=== PATIENT | female | born 1985 | race Caucasian/White ===

== ENCOUNTER → 2017-06-09 10:10 | Outpatient (CLI) | payer OTHER, SELFPAY ==
[2017-06-09 10:36] LABS: Hematocrit 37.5 % (37-47); Mean Corp Hgb Conc 34.7 g/gl (32-36); Mean Corpuscular Hgb 32.3 pg (27.0-32.0); Mean Corpuscular Volume 93.3 fL (81-99); Mean Platelet Vol. 9.8 fl (6.2-12.0); Platelet Count 240 K/mm3 (150-450); RBC Distribution Width CV 12.3 % (11.6-14.6); RBC Distribution Width SD 40.9 fl (35.1-43.9); Red Blood Count 4.02 M/mm3 (4.2-5.4); Scan Indicated on CBC? Y/N NO; White Blood Count 7.1 K/mm3 (4.4-11.0)
[2017-06-09 10:44] LABS: Glucose Challenge Gest 1H 50g 65 mg/dL (70-140)
== END ==
PROVIDERS: Visit Provider Obstetrics & Gynecology
DX: Z34.83 Encounter for supervision of other normal pregnancy, third trimester (principal)
CPT/HCPCS: 36415; 82950; 85027

== ENCOUNTER → 2017-08-03 11:30 | Outpatient (CLI) | payer OTHER, SELFPAY ==
--- NOTE | 2017-08-03 11:30 | DT_ITS ---
This patient was seen during an EMR downtime August 02, 2017 - August 09, 2017. This patient may have a combination of paper and electronic documentation or all paper documentation. All documentation is viewable within the e-chart portion of [employer] for each patient visit.
[2017-08-06 13:31] LABS: Group B Strep DNA By PCR POSITIVE (Negative); Probe Check PASS
== END ==
PROVIDERS: Visit Provider Obstetrics & Gynecology
DX: Z36.85 Encounter for antenatal screening for Streptococcus B (principal)
CPT/HCPCS: 87653

== ENCOUNTER 2017-08-31 22:40 | Inpatient (IN) | payer OTHER, SELFPAY ==
[2017-08-31 21:27] VITALS: BMI 24.5
[2017-08-31] MEDS: Lactated Ringers 1,000 ML 50 ML IV (22:55)
[2017-08-31 23:12] LABS: Hematocrit 42.7 % (37-47); Hemoglobin 15.4 g/dl (12.0-15.0); Mean Corp Hgb Conc 36.1 g/gl (32-36); Mean Corpuscular Hgb 32.6 pg (27.0-32.0); Mean Corpuscular Volume 90.3 fL (81-99); Mean Platelet Vol. 10.3 fl (6.2-12.0); Platelet Count 242 K/mm3 (150-450); RBC Distribution Width CV 12.6 % (11.6-14.6); RBC Distribution Width SD 41.1 fl (35.1-43.9); Red Blood Count 4.73 M/mm3 (4.2-5.4); White Blood Count 13.7 K/mm3 (4.4-11.0)
[2017-08-31 23:13] LABS: Scan Indicated on CBC? Y/N NO
[2017-08-31] MEDS: Oxytocin 30 units/NS 500 ml 30 UNITS/500 ML IV.SOLN 334 UNITS IV (23:56)
--- NOTE | 2017-09-01 00:18 | PCM.DCVAG ---
Discharge Diet: No Restrictions May resume sexual activity in: 4-6 weeks Additional Activity Instructions:: Nothing in the vagina for 4-6 weeks. You may return to work/school in 6 weeks. Additional Instructions: If you experience any of the following, contact your healthcare provider. Bleeding that soaks a pad every hour for 2 hours Fever 100.4 or higher Unrelieved abdominal pain Problems urinating (including inability to urinate or burning while urinating). Visual changes Severe headache Flu-like symptoms Pain or redness in one of both of your breasts Pain, warmth, tenderness or swelling in your legs, especially the calf area Frequent nausea and vomiting Symptoms of depression or anxiety If you experience any of the following, call 911 or go to the nearest Emergency Room. Chest pain Problems breathing Seizure activity Partial or complete paralysis of a body part, slurred speech, weakness or drooping of the face, or a sudden inability to walk or hold your balance Allergies/Adverse Reactions: Allergies promethazine [From Phenergan] Allergy (Verified 08/31/17 21:28) Other Panic attacks Medications to take at Discharge Loratadine [Claritin] 10 mg PO DAILY 06/26/15 Vits [Prenatabs FA] 1 tablet PO DAILY 06/26/15 Lactobacillus Acidophilus/Fos [Acidophilus Probiotic Tablet] 1 each PO DAILY 08/31/17 Magnesium Oxide [Magnesium] 375 mg PO DAILY 08/31/17 Please Follow Up With: Ilana Jackson MD - [phone] When: Call to make an appointment with your doctor in 6 weeks. Primary Care Physician: Damián Abdul MD [Primary Care Provider] - Test Results:
--- NOTE | 2017-09-01 00:19 | DCINST_ITS ---
Discharge Diet: No Restrictions May resume sexual activity in: 4-6 weeks Additional Activity Instructions:: Nothing in the vagina for 4-6 weeks. You may return to work/school in 6 weeks. Additional Instructions: If you experience any of the following, contact your healthcare provider. * Bleeding that soaks a pad every hour for 2 hours * Fever 100.4 or higher * Unrelieved abdominal pain * Problems urinating (including inability to urinate or burning while urinating) . * Visual changes * Severe headache * Flu-like symptoms * Pain or redness in one of both of your breasts * Pain, warmth, tenderness or swelling in your legs, especially the calf area * Frequent nausea and vomiting * Symptoms of depression or anxiety If you experience any of the following, call 911 or go to the nearest Emergency Room. * Chest pain * Problems breathing * Seizure activity * Partial or complete paralysis of a body part, slurred speech, weakness or drooping of the face, or a sudden inability to walk or hold your balance Allergies/Adverse Reactions: Allergies promethazine [From Phenergan] Allergy (Verified 08/31/17 21:28) Other Panic attacks Medications to take at Discharge Loratadine [Claritin] 10 mg PO DAILY 06/26/15 Vits [Prenatabs FA] 1 tablet PO DAILY 06/26/15 Lactobacillus Acidophilus/Fos [Acidophilus Probiotic Tablet] 1 each PO DAILY 05/16 Magnesium Oxide [Magnesium] 375 mg PO DAILY 08/31/17 Please Follow Up With: Ilana Jackson MD - [phone] When: Call to make an appointment with your doctor in 6 weeks. Primary Care Physician: Damián Abdul MD [Primary Care Provider] - Test Results:
--- NOTE | 2017-09-01 00:19 | PCM.OB.VAG ---
Vaginal Delivery Maternal Presentation: Active Labor Amniotic Membrane Rupture Type: Artificial Amniotic Fluid Description: Clear Final ERWIN: 08/28/17 Gestational age: 40 Weeks and 3 Days Date of Procedure: 08/31/17 Pre-Operative Diagnosis: 40 3/7 wk labor Post-Operative Diagnosis: same Surgery/ Procedure Performed: Spontaneous Vaginal Delivery Type of Anesthesia: None Description of Procedure: of a zimmer viable female over intact perineum. Head delivered DESIRE. No nuchal cord. shoulders delivered rapidly after head. Baby to maternal abdomen with spont, vigorous cry. Delayed cord clamping , then clamped x two and cut. routine blood for typing collected PP exam: no lacerations Placenta delivered intact, normal appearing , by spont expulsion 3V cord with trailing membranes EBL 350cc raytec counts correct x two. Pt and infant tolerated delivery well. To recovery, stable condition. Presentation: Vertex, DESIRE Placental Delivery Description: Spontaneous, Expressed Placenta Disposition: [facility] Cord Vessel Description: 3 Vessels Cord Entanglement: None Estimated Blood Loss: 350 A gender: Female (1 minute): 9 (5 minute): 9 Episiotomy Description: None Laceration: None Medications given after delivery: IV Pitocin Complications: None
[2017-09-01] MEDS: Oxytocin 30 units/NS 500 ml 30 UNITS/500 ML IV.SOLN 167 UNITS IV (00:26)
[2017-09-01] MEDS: Acetaminophen 500 MG Tablet 1000 MG PO ×2 (01:24→12:11)
[2017-09-01 02:00] VITALS: BP 116/58; PULSE 70; RESP 18; TEMP 37.2
[2017-09-01 03:50] VITALS: BP 100/48; PULSE 61; RESP 18; TEMP 36.8; O2SAT 96
--- NOTE | 2017-09-01 07:29 | PCM.PN.OB ---
Subjective: PPD# 0-1 delivered just prior to MN last night Doing well. Nursing, and having some pain and cramping. Took Tylenol for this. - Physical Exam General: Alert, Oriented x3, Cooperative, No apparent distress HEENT: Atraumatic Neck: Supple Abdomen: Soft - Fundus firm at umbilicus, NT. Neurological: Cranial nerves II-XII grossly intact Psych/Mental Status: Normal Affect Vital Signs Temp Pulse Resp BP Pulse Ox 98.3 F 61 18 100/48 L 96 09/01/17 03:50 09/01/17 03:50 09/01/17 03:50 09/01/17 03:50 09/01/17 03:50 Oxygen Delivery Method Room Air Weight: 82.2 kg Body Mass Index (BMI) 24.5 Intake and Output for Last 24 Hours 08/30/17 08/31/17 09/01/17 23:59 23:59 23:59 Intake Total 634 / 634 Output Total 800 / 800 Balance -166 / -166 Laboratory Tests Past 24 Hrs 08/31/17 08/31/17 08/31/17 22:55 22:55 22:55 WBC 13.7 H RBC 4.73 Hgb 15.4 H Hct 42.7 MCV 90.3 MCH 32.6 H MCHC 36.1 H RDW 12.6 RDW Differential 41.1 Plt Count 242 MPV 10.3 Blood Type Cancelled B NEGATIVE A1 Antigen Typing Cancelled Rho(D) Type Cancelled Antibody Screen Cancelled NEGATIVE Medical Necessity - Tobacco Use Smoking Status: Never smoker Assessment/Plan PPD#0-1 Stable . Continue care.
[2017-09-01] MEDS: Ibuprofen 600 MG Tablet PO ×2 (07:36→16:02)
[2017-09-01 08:00] VITALS: BP 110/70; PULSE 74; RESP 17; TEMP 36.7; O2SAT 99
[2017-09-01] MEDS: Magnesium Oxide 400 MG Tablet PO (11:46)
[2017-09-01] MEDS: Loratadine 10 MG Tablet PO (11:47)
[2017-09-01] MEDS: Prenatal Vits Tablet 1 TABLET PO (11:47)
--- NOTE | 2017-09-01 12:29 | NURSING ---
0424 While rounding, Mom states that baby is latching so well. Mom has a home pump and not sure she will do another. Mom independently has been latching but encouraged to call if and when we can help with feedings. Kyle GALLEGO
[2017-09-01 12:58] VITALS: BP 117/71; PULSE 70; RESP 17; TEMP 36.7; O2SAT 99
[2017-09-01 16:00] VITALS: BP 113/61; PULSE 78; RESP 17; TEMP 36.6; O2SAT 99
[2017-09-01 19:40] VITALS: BP 111/62; PULSE 67; RESP 18; TEMP 36.5; O2SAT 97
[2017-09-02 02:00] VITALS: BP 100/51; PULSE 60; RESP 18; TEMP 36.1; O2SAT 97
[2017-09-02] MEDS: Ibuprofen 600 MG Tablet PO (04:38)
--- NOTE | 2017-09-02 07:16 | PCM.PN.OB ---
Subjective: PPD#1-2 delivered just prior to MN (08/31/17 at 2353) tired today. 2 1/2 hr sleep as caring for baby overnight. Baby nursing, but had to try to wake to nurse in night time. Likely to go home very late this evening, if baby is released. GBS positive and inadequate interval from ABX given to delivery. Minimal pain, no other concerns voiced. Objective: sitting up in bed, holding sleeping - Physical Exam General: Alert, Oriented x3, Cooperative, No apparent distress HEENT: Atraumatic Neck: Supple Neurological: Cranial nerves II-XII grossly intact Psych/Mental Status: Normal Affect Vital Signs Temp Pulse Resp BP Pulse Ox 97.0 F L 60 18 100/51 L 97 09/02/17 02:00 09/02/17 02:00 09/02/17 02:00 09/02/17 02:00 09/02/17 02:00 Oxygen Delivery Method Room Air Weight: 82.2 kg Body Mass Index (BMI) 24.5 Intake and Output for Last 24 Hours 08/31/17 09/01/17 09/02/17 23:59 23:59 23:59 Intake Total 634 / 634 Output Total 800 / 800 Balance -166 / -166 Medical Necessity - Tobacco Use Smoking Status: Never smoker Assessment/Plan PPD# 1-2 , very late (just prior to MN on 08/31/17) Stable . Continue care. Likely dischg home later in evening. Advised of option to sleep here but on hotel status. Declines as prefers own bed, at home. RTO in 6 wk for pp check.
[2017-09-02 08:00] VITALS: BP 111/37; PULSE 64; RESP 16; TEMP 36.4; O2SAT 98
[2017-09-02] MEDS: Prenatal Vits Tablet 1 TABLET PO (09:34)
[2017-09-02] MEDS: Magnesium Oxide 400 MG Tablet PO (09:35)
[2017-09-02] MEDS: Loratadine 10 MG Tablet PO (09:35)
[2017-09-02 14:15] VITALS: BP 111/47; PULSE 62; TEMP 36.8; O2SAT 98
== END 2017-09-02 19:20 | disposition home or self-care (01) | DRG 775 ==
LOC: WPOUT 22:43
PROVIDERS: Admitting Provider Obstetrics & Gynecology; Family Provider Family Medicine; PCP Family Medicine; Visit Provider Obstetrics & Gynecology
DX: O99.824 Streptococcus B carrier state complicating childbirth (principal); O99.52 Diseases of the respiratory system complicating childbirth; J45.909 Unspecified asthma, uncomplicated; O99.72 Diseases of the skin and subcutaneous tissue complicating childbirth; L30.9 Dermatitis, unspecified; Z3A.40 40 weeks gestation of pregnancy; Z37.0 Single live birth
CPT/HCPCS: 59025; 59050; 85027; 86850; 86900; 86901; 99218; J7120; G0378

== ENCOUNTER → 2019-07-14 | Outpatient (CLI) | payer OTHER, SELFPAY ==
[2019-07-19 05:05] LABS: HPV APTIMA, High Risk Negative (Negative)
== END | disposition home or self-care (01) ==
LOC: LABSPEC 13:56
PROVIDERS: PCP Family Medicine; Referring Provider Obstetrics & Gynecology; Visit Provider Obstetrics & Gynecology
DX: Z12.4 Encounter for screening for malignant neoplasm of cervix (principal)
CPT/HCPCS: 87624; 88175; G0145

== ENCOUNTER 2021-01-13 20:20 | Inpatient (IN) | payer OTHER, SELFPAY ==
[2021-01-13] VITALS (7 sets, daily range): BP systolic 108–131; BP diastolic 52–65; PULSE 60–73; TEMP 36.4–36.8; O2SAT 100; BMI 24.9
[2021-01-13] MEDS: Lactated Ringers 1,000 ML 50 ML IV (20:49)
[2021-01-13] MEDS: 0.9% Saline Lock 10 ML Syringe IV ×2 (20:54→23:25)
[2021-01-13 20:58] LABS: Absolute Lymphocyte Count 1.01 X10^3/uL (0.83-4.51); Absolute Neutrophil Count 8.9 X10^3/uL (2.0-7.7); Basophil# 0.03 X10^3/uL; Basophil% 0.3 % (0-1); Eosinophil# 0.11 X10^3/uL; Hematocrit 37.1 % (37-47); Hemoglobin 12.9 g/dL (12.0-15.0); Lymphocyte # 1.01 X10^3/ul (0.83-4.51); Lymphocyte % 9.6 % (19-41); Mean Corp Hgb Conc 34.8 g/dL (32-36); Mean Corpuscular Hgb 32.4 pg (27.0-32.0); Mean Corpuscular Volume 93.2 fL (81-99); Monocyte# 0.44 X10^3/uL; Monocyte% 4.2 % (0-10); NRBC Flagged by Analyzer 0 % (0-5); Neutrophil # 8.91 X10^3/uL (2.7-7.7); Neutrophil % 84.4 % (47-70); Platelet Count 226 K/mm3 (150-450); RBC Distribution Width CV 12.3 % (11.6-14.6); RBC Distribution Width SD 42.4 fl (35.1-43.9); Red Blood Count 3.98 M/mm3 (4.2-5.4); White Blood Count 10.6 K/mm3 (4.4-11.0)
[2021-01-13] MEDS: Oxytocin 30 units/NS 500 ml 30 UNITS/500 ML IV.SOLN 334 UNITS IV (23:13)
[2021-01-13] MEDS: Methylergonovine 0.2 MG/ML Ampul IM (23:20)
--- NOTE | 2021-01-13 23:23 | HP.PCM.OB_ITS ---
HPI - General General Date of Admission: 01/13/21 HPI Narrative RUDY SANFORD, is a 35 F who presents at 39w0d in active labor. uncomplicated. Maternal Data Information ERWIN Calculator Estimated Delivery Date Method Current WG Current Estimate 01/20/21 Manual 39w 0d PFSH PFSH Medical History (Updated 01/13/21 @ 23:25 by Cheryl Pabon CNM) Asthma Home Medications loratadine [Claritin] 10 mg PO DAILY 06/26/15 [History Last Taken 08/30/17 18:00 10 mg] vit,[id number] [Prenatabs FA] 1 tab PO DAILY 06/26/15 [History Last Taken 08/31/17 09:00 1 tab] Lactobac acidoph-fructooligos 1 ea PO DAILY 08/31/17 [History Last Taken 08/31/17 09:00 1 tab] magnesium oxide 375 mg PO DAILY 08/31/17 [History Last Taken 08/30/17 21:30 375 mg] ascorbic acid (vitamin C) [Vitamin C] 1 g PO Q6H 01/13/21 [History Last Taken Unknown] cetirizine [Zyrtec] 10 mg PO DAILY 01/13/21 [History Last Taken Unknown] omega-3 fatty acids [Fish Oil] 1,000 mg PO DAILY 01/13/21 [History Last Taken Unknown] Allergy/AdvReac Type Severity Reaction Status Date / Time chocolate flavor Allergy Rash Verified 01/13/21 20:08 promethazine [From Phenergan] Allergy Other Verified 01/13/21 20:08 tomato Allergy Rash Verified 01/13/21 20:08 lactase [From Dairy Aid] AdvReac Anaphylaxis Verified 01/13/21 20:08 Surgical History (Updated 01/13/21 @ 20:29 by Yesika Collins) H/O wisdom tooth extraction Social History Smoking Status: Never smoker History Elective abortions Hx Para 2 Spontaneous abortions Hx # Term Pregnancies Ectopic pregnancies Hx # Pregnancies Multiple births # of living children NST FHR Rate Baby A Baseline: 135 Variability:: Moderate Accelerations:: 15 x 15 Decelerations:: None FHR Category:: Category I Uterine Activity:: Every 7 minutes, moderate ROS Constitutional Constitutional: Reports systems reviewed and no addt'l complaints, except as documented; Denies headache(s) Eyes Eyes: Denies acute decrease in peripheral vision, blurry vision or change in vision ENT HEENT: Reports systems reviewed and no addt'l complaints, except as documented Cardiovascular Cardiovascular: Denies chest pain or dizziness Respiratory/Chest Respiratory/Chest: Denies cough, dyspnea, dyspnea on exertion, shortness of breath at rest or shortness of breath with exertion Gastrointestinal Gastrointestinal: Denies abdominal pain, diarrhea, nausea or vomiting Genitourinary Genitourinary: Denies abdominal discomfort or movement Musculoskeletal Musculoskeletal: Denies limited range of motion Integumentary Integumentary: Reports systems reviewed and no addt'l complaints, except as documented Neurologic Neurologic: Reports systems reviewed and no addt'l complaints, except as docu mented Psychiatric Psychiatric: Reports systems reviewed and no addt'l complaints, except as documented Endocrine Endocrinology: Reports systems reviewed and no addt'l complaints, except as documented Hematologic/Lymphatic Hematologic/Lymphatic: Reports systems reviewed and no addt'l complaints, except as documented Allergic/Immunologic Allergic/Immunologic: Reports systems reviewed and no addt'l complaints, except as documented Vital Signs Vital Signs Vital Signs: 01/13/21 20:01 01/13/21 20:03 01/13/21 21:03 Temperature 97.6 F L 98.2 F Temperature Source Temporal Pulse Rate 70 71 73 Blood Pressure 124/62 H 118/59 L BP Systolic 124 118 BP Diastolic 62 59 Pulse Ox 100 01/13/21 22:11 Temperature 97.7 F L Temperature Source Pulse Rate 73 Blood Pressure 108/52 L BP Systolic 108 BP Diastolic 52 Pulse Ox Weight Weight: 184 lb Body Mass Index (BMI) 24.9 Physical Exam Const alert and oriented x3 General Appearance: cooperative Orientation / Consciousness: awake, oriented to person, oriented to place and oriented to time Exam Limitations: no limitations HEENT normocephalic Head and Scalp: normal to inspection, normocephalic and atraumatic Face and Sinus: normal facial exam Eyes General Eye: normal appearance of both eyes Neck full ROM Chest Chest: symmetrical chest wall rise Resp normal respiratory effort and normal air movement Auscultation: clear to auscultation bilaterally Cardio regular rate, regular rhythm, S1 normal heart sound, S2 normal heart sound, no murmurs, no rub, no gallops and no clicks GI normal to inspection, nondistended, normoactive bowel sounds and non-tender appearance of the vagina normal Narrative: AROM for small amount of clear fluid Bladder / Kidney Exam: no CVA tenderness Manual OB Exam: estimated gestational size appropriate, presentation cephalic, dilated 9cm, effaced 90% and station 0 Back/Spine normal ROM Extremity normal to inspection and full ROM Skin no rashes or lesions noted Neuro oriented x3, CN's II-XII intact bilaterally and moves all extremities Sensorium / Orientation: awake, alert and oriented to person Motor Exam: clonus absent Deep Tendon Reflexes: Rt Patellar (L4): 2+ and Lt Patellar (L4): 2+ Labs Labs Labs: Blood Type B NEGATIVE Antibody Screen NEGATIVE Hct 37.1 % (37-47) Hgb 12.9 g/dL (12.0-15.0) Rubella IgG Antibody 151.7 IU/mL Hep Bs Antigen Negative (Negative) C.trachomatis DNA (PCR) Negative (Negative) Glucose 1 Hr 50 gm 65 mg/dL (70-140) L Group B Strep DNA POSITIVE (Negative) H Rhogam given: No HIV negative Assessment & Plan (1) Active labor at term: PLAN: 1) Admit to labor and delivery 2) Routine labs 3) GBS positive-Prophylaxis per protocol 4) COVID vaccinated 5) IA after reactive NST 6) Planning unmedicated 7) collaborative physician and notified of patient status
--- NOTE | 2021-01-13 23:27 | EX.PCM.OBRPT ---
Assessment & Plan (1) Vaginal delivery: (2) Uterine atony: Maternal Data Information ERWIN Calculator Estimated Delivery Date Method Current WG Current Estimate 01/20/21 Manual 39w 0d Vaginal Delivery Maternal Presentation Maternal Presentation: Active Labor Operative Information Date of Procedure: 01/13/21 Pre-Operative Diagnosis: Active Labor Post-Operative Diagnosis: Type of Anesthesia: None Estimated Blood Loss: 350 ml Time of Delivery: 23:11 Findings Description of Procedure: Progressed to complete with urge to push. of viable female over intact perineum. head delivered with body immediately forth coming. Infant placed on maternal abdomen, strong cry, mouth and nares suctioned for secretions. APGARS 9,9. Pitocin started for active 3rd stage management. Cord clamped and cut after pulsations ceased by FOB. Placenta delivered via richelle intact, 3 vessel cord. Perineum inspected and intact. Fundus boggy and increased bleeding, Methergine IM given. Hemostasis achieved and fundus firm. Vaginal sweep completed, sponge and instrument count correct. Mom and baby stable, planning to breastfeed. Family bonding well. notified of delivery. Presentation: Vertex and DESIER Amniotic Membrane Rupture Type: Artificial Amniotic Fluid Description: Clear Placental Delivery Description: Expressed Placenta Disposition: [facility] Cord Vessel Description: 3 Vessels Cord Entanglement: None Infant A Gender: Female (1 minute): 9 (5 minute): 9 Delayed Cord Clamping: Yes Post Vaginal Delivery Medications Given After Delivery: IV Pitocin Episiotomy Description: None Laceration: None Complication Complications: None
[2021-01-14] VITALS (12 sets, daily range): BP systolic 103–131; BP diastolic 36–75; PULSE 61–77; RESP 16; TEMP 36.6–37.3; O2SAT 97–98
[2021-01-14] MEDS: Ibuprofen 600 MG Tablet PO ×4 (00:20→18:31)
[2021-01-14] MEDS: Acetaminophen 500 MG Tablet 1000 MG PO ×4 (01:13→22:37)
--- NOTE | 2021-01-14 08:56 | PN.OBGYN_ITS ---
Subjective Subjective Pain well controlled. Average lochia. Objective Data Objective Data Vital Signs: Vital Signs Temp Pulse Resp BP Pulse Ox 97.8 F 70 16 114/69 97 01/14/21 08:01 01/14/21 08:01 01/14/21 08:01 01/14/21 08:01 01/14/21 08:01 Oxygen Delivery Method Room Air Weight: 83.461 kg Body Mass Index (BMI) 24.9 Intake & Output: Intake and Output for Last 24 Hours 01/12/21 01/13/21 01/14/21 23:59 23:59 23:59 Intake Total 402 / 402 297.82 / 297.82 Output Total 750 / 750 Balance 402 / 402 -452.18 / -452.18 Lab / Micro Data Result Diagrams: 01/13/21 20:40 Labs: Laboratory Results - last 24 hr 01/13/21 20:40: WBC 10.6, RBC 3.98 L, Hgb 12.9, Hct 37.1, MCV 93.2, MCH 32.4 H, MCHC 34.8, RDW Std Deviation 42.4, RDW Coeff of Brenna 12.3, Plt Count 226, MPV 10.0, Immature Gran % (Auto) 0.500, Neut % (Auto) 84.4 H, Lymph % (Auto) 9.6 L, [place] % (Auto) 4.2, Eos % (Auto) 1.0, Baso % (Auto) 0.3, Absolute Neuts (auto) 8.9 H, Absolute Lymphs (auto) 1.01, Nucleated RBC % 0 01/13/21 20:40: Blood Type B NEGATIVE, Antibody Screen NEGATIVE Physical Exam Const alert and no apparent distress Narrative: Fundus firm, below umbilicus. Assessment & Plan (1) Vaginal delivery: PLAN: day #1 status post vaginal delivery. Patient and are doing well. Working on breast-feeding. Likely discharge home tomorrow.
[2021-01-14 16:49] LABS: Hematocrit 35.1 % (37-47); Hemoglobin 12.3 g/dL (12.0-15.0); Mean Corpuscular Hgb 32.6 pg (27.0-32.0); Mean Corpuscular Volume 93.1 fL (81-99); Mean Platelet Vol. 9.9 fl (6.2-12.0); Platelet Count 236 K/mm3 (150-450); RBC Distribution Width CV 12.3 % (11.6-14.6); RBC Distribution Width SD 42.1 fl (35.1-43.9); Red Blood Count 3.77 M/mm3 (4.2-5.4); White Blood Count 13.4 K/mm3 (4.4-11.0)
[2021-01-15] VITALS: BP 105/47; PULSE 64; RESP 16; TEMP 36.5; O2SAT 96
[2021-01-15] MEDS: Ibuprofen 600 MG Tablet PO ×2 (00:56→08:09)
[2021-01-15 04:10] VITALS: BP 106/58; PULSE 59; RESP 16; TEMP 36.3; O2SAT 98
[2021-01-15] MEDS: Acetaminophen 500 MG Tablet 1000 MG PO ×2 (04:52→11:04)
--- NOTE | 2021-01-15 08:19 | PCM.DC ---
Discharge Instructions Diet Discharge Diet: No restrictions Activity May resume sexual activity in: 6-8 weeks Weight Bearing Status: Weight bearing as tolerated Dressing / Incision Call your doctor if you observe: Fever of 101 or Higher, Inability to urinate, Using more than 1 pad per hour, Shortness of breath, Chest pain, Calf discomfort and Uncontrolled pain Follow Up Care Please Follow Up With: Maddy Conklin CNM When: 2 weeks virtual visit/ 6 weeks in office Test Results: Test results from this visit will be discussed in further detail at your follow-up appointment, if applicable. Discharge Plan Admission Admit Date/Time: 01/13/21 20:20 Primary Reason for Your Visit: Labor and delivery Attending Provider: Cheryl Pabon Primary Care Provider: Damián Abdul Discharge Orders/Prescriptions Prescriptions: No Action loratadine [Allergy Relief (loratadine)] 10 MG tablet 10 mg PO DAILY RF: 0 Prenatabs FA 1 TABLET tablet 1 tab PO DAILY RF: 0 Lactobac acidoph-fructooligos 1 EACH tablet 1 ea PO DAILY RF: 0 magnesium oxide 400 MG tablet 375 mg PO DAILY RF: 0 ascorbic acid (vitamin C) [Vitamin C] 1,000 mg Tablet 1 g PO Q6H RF: 0 cetirizine [Zyrtec] 10 mg Tablet 10 mg PO DAILY RF: 0 Fish Oil Capsule 1,000 mg PO DAILY RF: 0 Referrals / Follow Up: Damián Abdul MD [Primary Care Provider] - Disposition Disposition (needs filled in before D/C Order can be placed): Home, Self Care
--- NOTE | 2021-01-15 08:19 | PCM.PN.OB ---
Subjective Subjective Patient sitting in chair at bedside. without difficulty. Ambulating and voiding. Desires discharge home today. Objective Data Objective Data Vital Signs: Vital Signs Temp Pulse Resp BP Pulse Ox 97.4 F L 59 L 16 106/58 L 98 01/15/21 04:10 01/15/21 04:10 01/15/21 04:10 01/15/21 04:10 01/15/21 04:10 Oxygen Delivery Method Room Air Weight: 184 lb Body Mass Index (BMI) 24.9 Intake & Output: Intake and Output for Last 24 Hours 01/13/21 01/14/21 01/15/21 23:59 23:59 23:59 Intake Total 402 / 402 297.82 / 297.82 Output Total 750 / 750 Balance 402 / 402 -452.18 / -452.18 Lab / Micro Data Result Diagrams: 01/14/21 16:35 Labs: Laboratory Results - last 24 hr 01/14/21 16:35: WBC 13.4 H, RBC 3.77 L, Hgb 12.3, Hct 35.1 L, MCV 93.1, MCH 32.6 H, MCHC 35.0, RDW Std Deviation 42.1, RDW Coeff of Brenna 12.3, Plt Count 236, MPV 9.9 ROS Eyes Eyes: Denies blurry vision, change in vision or spots in vision ENT HEENT: Denies dizziness or headache(s) Cardiovascular Cardiovascular: Denies abdominal pain, chest pain or dyspnea Respiratory/Chest Respiratory/Chest: Denies cough, dyspnea, shortness of breath at rest or shortness of breath with exertion Gastrointestinal Gastrointestinal: Denies abdominal pain, diarrhea or vomiting Genitourinary Genitourinary: Denies change in urinary stream, difficulty urinating or dysuria Musculoskeletal Musculoskeletal: Reports none Integumentary Integumentary: Denies rash Neurologic Neurologic: Denies dizziness, headache(s), memory loss or weakness Physical Exam Const alert and no apparent distress General Appearance: cooperative and comfortable Exam Limitations: no limitations HEENT normocephalic Eyes General Eye: normal appearance of both eyes Neck full ROM General: normal visual inspection Chest Chest: symmetrical chest wall rise Resp normal respiratory effort and normal air movement Effort and Inspection: symmetric chest movement Auscultation: clear to auscultation bilaterally Cardio regular rate and regular rhythm GI normal to inspection, nondistended, normoactive bowel sounds Back/Spine normal ROM Extremity full ROM and no calf tenderness General Extremity: normal exam except as noted Skin no rashes or lesions noted Neuro CN's II-XII intact bilaterally Psych mental status grossly normal Assessment & Plan (1) Vaginal delivery: PLAN: PPD 2 - intact Routine care support D/C home with follow up in office
[2021-01-15 08:27] VITALS: BP 113/69; PULSE 67; RESP 16; TEMP 36.6; O2SAT 100
== END 2021-01-15 11:55 | disposition home or self-care (01) | DRG 807 ==
LOC: WPOUT 20:22 → WP 20:22
PROVIDERS: Admitting Provider Advanced Practice Midwife; PCP Family Medicine; Visit Provider Advanced Practice Midwife
DX: O72.1 Other immediate postpartum hemorrhage (principal); Z37.0 Single live birth; O99.824 Streptococcus B carrier state complicating childbirth; Z3A.39 39 weeks gestation of pregnancy
CPT/HCPCS: 59025; 59050; 85025; 85027; 86850; 86900; 86901; 99218; J7120; A4216; G0378

== ENCOUNTER 2024-01-05 14:45 | Inpatient (IN) | payer OTHER, SELFPAY ==
[2024-01-05] VITALS (18 sets, daily range): BP systolic 107–124; BP diastolic 56–97; PULSE 56–72; RESP 16; TEMP 36.6–36.8; O2SAT 100; BMI 24.9
[2024-01-05] MEDS: 0.9% Saline Lock 10 ML Syringe IV (16:20)
[2024-01-05 16:54] LABS: Absolute Lymphocyte Count 0.88 X10^3/uL (0.83-4.51); Absolute Neutrophil Count 12.4 X10^3/uL (2.0-7.7); Basophil# 0.03 X10^3/uL; Basophil% 0.2 % (0-1); Eosinophil# 0.09 X10^3/uL; Eosinophils% 0.6 % (0-5); Hematocrit 37.5 % (37-47); Lymphocyte # 0.88 X10^3/ul (0.83-4.51); Lymphocyte % 6.3 % (19-41); Mean Corp Hgb Conc 34.7 g/dL (32-36); Mean Corpuscular Hgb 32.2 pg (27.0-32.0); Mean Corpuscular Volume 92.8 fL (81-99); Mean Platelet Vol. 10.4 fl (6.2-12.0); Monocyte# 0.58 X10^3/uL; Monocyte% 4.1 % (0-10); NRBC Flagged by Analyzer 0 % (0-5); Neutrophil # 12.35 X10^3/uL (2.7-7.7); Neutrophil % 88.3 % (47-70); Platelet Count 214 K/mm3 (150-450); RBC Distribution Width CV 12.3 % (11.6-14.6); RBC Distribution Width SD 42.2 fl (35.1-43.9); Red Blood Count 4.04 M/mm3 (4.2-5.4)
[2024-01-05 17:46] LABS: Syphilis Antibodies Non-reactive
[2024-01-05] MEDS: Oxytocin 10 UNITS/ML Vial IM (18:07)
[2024-01-05] MEDS: Acetaminophen 500 MG Tablet 1000 MG PO (19:59)
[2024-01-05] MEDS: Ibuprofen 600 MG Tablet PO (23:25)
[2024-01-06] MEDS: Acetaminophen 500 MG Tablet 1000 MG PO ×2 (03:07→19:53)
[2024-01-06 03:10] VITALS: BP 115/70; PULSE 69; RESP 16; TEMP 36.3
[2024-01-06] MEDS: DiphenhydrAMINE 25 MG Capsule PO ×3 (05:32→21:47)
[2024-01-06] MEDS: Ibuprofen 600 MG Tablet PO ×2 (07:14→12:34)
[2024-01-06 08:00] VITALS: BP 126/74; PULSE 56; RESP 16; TEMP 36.2
[2024-01-06] MEDS: Sodium Chloride 0.65% 1 SPRAY SPRAY.BTL NASAL (09:30)
[2024-01-06] MEDS: Acetaminophen/Butalbital/Caffe 1 Tablet 2 TABLET PO (10:22)
[2024-01-06 11:57] VITALS: BP 115/76; PULSE 58; RESP 16; TEMP 36.3; O2SAT 100
[2024-01-06] MEDS: oxyCODONE 5 MG Tablet 10 MG PO (13:30)
[2024-01-06] MEDS: Metoclopramide 10 MG Tablet PO (15:12)
[2024-01-06] MEDS: Ketorolac 30 MG/ML Syringe IM (15:12)
[2024-01-06 16:00] VITALS: BP 112/65; PULSE 59; RESP 16; TEMP 36.3; O2SAT 97
[2024-01-06 19:55] VITALS: PULSE 57; RESP 16; TEMP 36.3; O2SAT 99
[2024-01-06] MEDS: Ketorolac 10 MG Tablet PO (21:47)
[2024-01-06] MEDS: Metoclopramide 5 MG TABLET PO (21:48)
[2024-01-07] MEDS: Acetaminophen 500 MG Tablet 1000 MG PO ×2 (01:54→08:37)
[2024-01-07 01:55] VITALS: BP 121/80; PULSE 61; RESP 16; TEMP 36.4; O2SAT 97
[2024-01-07] MEDS: Metoclopramide 5 MG TABLET PO ×2 (03:57→10:12)
[2024-01-07] MEDS: Ketorolac 10 MG Tablet PO ×2 (03:58→10:12)
[2024-01-07 08:40] VITALS: BP 122/79; PULSE 59; RESP 16; TEMP 36.7; O2SAT 100
[2024-01-07] MEDS: DiphenhydrAMINE 25 MG Capsule PO (10:12)
[2024-01-07 10:56] VITALS: BP 122/79; PULSE 59; RESP 16; TEMP 36.7; O2SAT 100
== END 2024-01-07 11:40 | disposition home or self-care (01) | DRG 807 ==
PROVIDERS: Admitting Provider Obstetrics & Gynecology; PCP Family Medicine; Referring Provider Obstetrics & Gynecology; Visit Provider Obstetrics & Gynecology
DX: O99.52 Diseases of the respiratory system complicating childbirth (principal); Z37.0 Single live birth; G43.909 Migraine, unspecified, not intractable, without status migrainosus; J45.909 Unspecified asthma, uncomplicated; O99.355 Diseases of the nervous system complicating the puerperium; Z3A.38 38 weeks gestation of pregnancy
CPT/HCPCS: 59025; 59050; 85025; 86780; 86850; 86900; 86901; 99221; A4216; G0378